=== PATIENT | female | born 1935 | race Caucasian/White ===

== ENCOUNTER 2017-02-13 13:00 | Emergency (ER) | payer MEDICARE, OTHER ==
--- NOTE | 2017-02-13 13:09 | EDM.PDOC ---
[id number] 4d FEVER Time Seen by Provider: 02/13/17 13:09 Source of Information: Reports: Patient, Family, Old Records, RN, RN Notes Reviewed History Limitations: Reports: No Limitations - History of Present Illness INITIAL COMMENTS - FREE TEXT/NARRATIVE: Pt with Hx of colorectal cancer s/p colostomy arrives to ER by POV with c/o of onset of weakness and fevers last night. Pt's states pt was just discharged home from a short senior living stay after being d/c'd from [facility]. They have not changed the surgical dressing for several days. Pt states that she hasn't has any stool out of her ostomy for 3 or 4 days. Pt's state pt has not been eating or drinking much since she got home. Denies abdominal distention, vomiting, urinary Sx's, or cough. 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 - Related Data Allergies Allergy/AdvReac Type Severity Reaction Status Date / Time Penicillins Allergy Edema Verified 10/15/16 17:29 Home Meds: Home Meds Tolterodine Tartrate [Detrol LA] 4 mg PO DAILY 10/15/16 [History] Pantoprazole [ProTONIX IV] 40 mg IV ASDIRECTED vial 10/16/16 [Rx] Potassium Chloride [Klor-Con 10] 20 meq PO BIDMEALS tab.er 10/16/16 [Rx] cefTRIAXone [Rocephin] 1 gm IV Q24H adv 10/16/16 [Rx] diphenhydrAMINE [Benadryl] 25 mg PO BEDTIME PRN #0 tablet 10/16/16 [Rx] Past Medical History HEENT History: Reports: Impaired Vision Cardiovascular History: Reports: Hypertension Gastrointestinal History: Reports: GERD Genitourinary History: Reports: UTI, Recurrent 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: - Infectious Disease History Infectious Disease History: Reports: Chicken Pox, Shingles - Past Surgical History Musculoskeletal Surgical History: Reports: Knee Replacement Social & Family History - Family History Cardiac: Reports: CAD (both parents), Hypertension (both parents) Neurological: Reports: CVA (mother) - Tobacco Use Smoking Status *Q: Never Smoker Second Hand Smoke Exposure: No - Caffeine Use Caffeine Use: Reports: Coffee, Soda - Recreational Drug Use Recreational Drug Use: No - Living Situation & Occupation Living situation: Reports: , with Spouse Occupation: Retired ED ROS GENERAL - Review of Systems Review Of Systems: ROS reveals no pertinent complaints other than HPI. ED EXAM, GENERAL - Physical Exam Exam: See Below Exam Limited By: No Limitations General Appearance: Alert, No Apparent Distress, Obese, Other (chronically ill appearing) Eye Exam: Bilateral Eye: Normal Inspection Ears: Normal External Exam, Hearing Grossly Normal Nose: Normal Inspection, Normal Mucosa, No Blood Throat/Mouth: Normal Oropharynx, Normal Voice, Other (dry oral membranes) Head: Atraumatic, Normocephalic Neck: Normal Inspection, Supple, Non-Tender, Full Range of Motion. No: Lymphadenopathy (L), Lymphadenopathy (R) Respiratory/Chest: No Respiratory Distress, No Accessory Muscle Use, Chest Non- Tender, Decreased Breath Sounds, Other (occ. mild dry cough) Cardiovascular: Normal Peripheral Pulses, Regular Rate, Rhythm GI/Abdominal: Normal Bowel Sounds, Soft, No Distention, Pelvis Stable, Tender ( mild generalized tenderness to palpation.), Other (empty ostomy bag). No: Guarding, Rigid, Rebound Back Exam: Normal Inspection, Full Range of Motion. No: CVA Tenderness (L), CVA Tenderness (R) Extremities: Normal Inspection, Normal Range of Motion, Non-Tender, Normal Capillary Refill, No Pedal Edema Neurological: Alert, Oriented, No Motor/Sensory Deficits Psychiatric: Normal Affect, Normal Mood Skin Exam: Warm, Dry, Wound/Incision (poor hygiene, mild erythema at abdominal wound) Course - Vital Signs Last Recorded V/S: Last Vital Signs Temp 36.8 C 02/13/17 15:00 Pulse 67 02/13/17 15:00 Resp 16 02/13/17 15:00 BP 108/49 L 02/13/17 15:00 Pulse Ox 96 02/13/17 15:00 - Orders/Labs/Meds Orders: Active Orders 24 hr Category Date Time Status Peripheral IV Care [RC] . DIRECTED Care 02/13/17 13:24 Active CULTURE BLOOD [BC] Stat Lab 02/13/17 13:36 Received CULTURE BLOOD [BC] Stat Lab 02/13/17 13:40 Received Blood Culture x2 Reflex Set [OM.PC] Stat Oth 02/13/17 13:23 Ordered Peripheral IV Insertion Adult [OM.PC] Stat [facility] 02/13/17 13:23 Ordered Labs: Laboratory Tests 02/13/17 02/13/17 02/13/17 Range/Units 13:35 13:36 13:36 WBC 9.8 (5.0-10.0) 10^3/uL RBC 3.24 L (4.2-5.4) 10^6/uL Hgb 9.0 L (12.0-16.0) g/dL Hct 28.2 L (37.0-47.0) % MCV 87.0 (80-100) fL MCH 27.8 (27.0-34.0) pg MCHC 31.9 L (33.0-35.0) g/dL Plt Count 504 H (150-450) 10^3/uL Neut % (Auto) 67.6 (42.2-75.2) % Lymph % (Auto) 22.6 (20.5-50.1) % [place] % (Auto) 6.9 (2-8) % Eos % (Auto) 2.5 (1.0-3.0) % Baso % (Auto) 0.4 (0.0-1.0) % Sodium 136 (135-145) mmol/L Potassium 3.2 L (3.6-5.0) mmol/L Chloride 101 (101-111) mmol/L Carbon Dioxide 25.0 (21.0-31.0) mmol/L Anion Gap 13.2 BUN 19 H (7-18) mg/dL Creatinine 1.0 (0.6-1.3) mg/dL Est Cr Clr Drug Dosing 38.10 mL/min Estimated GFR (MDRD) 53 BUN/Creatinine Ratio 19.00 Glucose 224 H (74-105) mg/dL Lactic Acid (0.5-2.2) mmol/L Calcium 8.2 L (8.4-10.2) mg/dl Total Bilirubin 0.5 (0.2-1.0) mg/dL AST 13 (10-42) IU/L ALT 8 L (10-60) IU/L Alkaline Phosphatase 91 (42-121) IU/L Total Protein 6.6 L (6.7-8.2) g/dl Albumin 2.6 L (3.2-5.5) g/dl Globulin 4.0 Albumin/Globulin Ratio 0.65 Amylase 39 (28-100) U/L Lipase 16 L (22-51) U/L Urine Color Yellow (YELLOW) Urine Appearance Slightly cloudy (CLEAR) Urine pH 5.0 (5.0-9.0) Ur Specific [place] 1.020 (1.005-1.030) Urine Protein 30 H (NEGATIVE) Urine Glucose (UA) Negative (NEGATIVE) Urine Ketones Negative (NEGATIVE) Urine Occult Blood Negative (NEGATIVE) Urine Nitrite Negative (NEGATIVE) Urine Bilirubin Negative (NEGATIVE) Urine Urobilinogen 0.2 (0.2-1.0) mg/dL Ur Leukocyte Esterase Trace H (NEGATIVE) Urine RBC 0-5 /HPF Urine WBC 5-10 H (0-5/HPF) /HPF Ur Epithelial Cells Few /HPF Amorphous Sediment Few (0/HPF) /HPF Urine Bacteria Few (0-FEW/HPF) /HPF /10/31 Range/Units 13:36 WBC (5.0-10.0) 10^3/uL RBC (4.2-5.4) 10^6/uL Hgb (12.0-16.0) g/dL Hct (37.0-47.0) % MCV (80-100) fL MCH (27.0-34.0) pg MCHC (33.0-35.0) g/dL Plt Count (150-450) 10^3/uL Neut % (Auto) (42.2-75.2) % Lymph % (Auto) (20.5-50.1) % [place] % (Auto) (2-8) % Eos % (Auto) (1.0-3.0) % Baso % (Auto) (0.0-1.0) % Sodium (135-145) mmol/L Potassium (3.6-5.0) mmol/L Chloride (101-111) mmol/L Carbon Dioxide (21.0-31.0) mmol/L Anion Gap BUN (7-18) mg/dL Creatinine (0.6-1.3) mg/dL Est Cr Clr Drug Dosing mL/min Estimated GFR (MDRD) BUN/Creatinine Ratio Glucose (74-105) mg/dL Lactic Acid 1.6 (0.5-2.2) mmol/L Calcium (8.4-10.2) mg/dl Total Bilirubin (0.2-1.0) mg/dL AST (10-42) IU/L ALT (10-60) IU/L Alkaline Phosphatase (42-121) IU/L Total Protein (6.7-8.2) g/dl Albumin (3.2-5.5) g/dl Globulin Albumin/Globulin Ratio Amylase (28-100) U/L Lipase (22-51) U/L Urine Color (YELLOW) Urine Appearance (CLEAR) Urine pH (5.0-9.0) Ur Specific [place] (1.005-1.030) Urine Protein (NEGATIVE) Urine Glucose (UA) (NEGATIVE) Urine Ketones (NEGATIVE) Urine Occult Blood (NEGATIVE) Urine Nitrite (NEGATIVE) Urine Bilirubin (NEGATIVE) Urine Urobilinogen (0.2-1.0) mg/dL Ur Leukocyte Esterase (NEGATIVE) Urine RBC /HPF Urine WBC (0-5/HPF) /HPF Ur Epithelial Cells /HPF Amorphous Sediment (0/HPF) /HPF Urine Bacteria (0-FEW/HPF) /HPF Meds: Medications Discontinued Medications Generic Name Dose Route Start Last Admin Trade Name Freq PRN Reason Stop Dose Admin Sodium Chloride 1,000 mls @ 999 mls/hr 02/13/17 13:24 02/13/17 13:50 Normal Saline IV 02/13/17 14:24 999 mls/hr .BOLUS ONE Administration Sodium Chloride 10 ml 02/13/17 13:23 02/13/17 13:40 Saline Flush FLUSH 10 ml ASDIRECTED PRN Administration Keep Vein Open - Radiology Interpretation Free Text/Narrative:: CXR: no acute process per Rad. report. Departure - Departure Time of Disposition: 14:55 Disposition: DC/Tfer to [facility] 02 Condition: serious Clinical Impression: Fever of unknown origin, Encounter for surgical wound dressing change, History of colorectal cancer Hypotension Qualifiers: Hypotension type: unspecified hypotension type Qualified Code(s): I95.9 - Hypotension, unspecified - Discharge Information Referrals: Liliane Jean-Baptiste, [employer] [Primary Care Provider] - Forms: ED Department Discharge, Interfacility Transfer EMTALA - My Orders Last 24 Hours: My Active Orders 02/13/17 13:23 Blood Culture x2 Reflex Set [OM.PC] Stat Peripheral IV Insertion Adult [OM.PC] Stat 02/13/17 13:24 Peripheral IV Care [RC] . DIRECTED 02/13/17 13:36 CULTURE BLOOD [BC] Stat 02/13/17 13:40 CULTURE BLOOD [BC] Stat - Assessment/Plan Last 24 Hours: My Active Orders 02/13/17 13:23 Blood Culture x2 Reflex Set [OM.PC] Stat Peripheral IV Insertion Adult [OM.PC] Stat 02/13/17 13:24 Peripheral IV Care [RC] . DIRECTED 02/13/17 13:36 CULTURE BLOOD [BC] Stat 02/13/17 13:40 CULTURE BLOOD [BC] Stat
[2017-02-13] MEDS ORDERED: Sodium Chloride 0.9% 10 ML Syringe FLUSH PRN (13:23)
[2017-02-13] MEDS ORDERED: Sodium Chloride 0.9% 1,000 ML IV ONE (13:24)
[2017-02-13 15:23] VITALS: BP 108/49
== END 2017-02-13 15:38 ==
LOC: DL.ED 13:00
DX: R50.9 Fever, unspecified (principal); I95.9 Hypotension, unspecified; K21.9 Gastro-esophageal reflux disease without esophagitis; Z85.048 Personal history of other malignant neoplasm of rectum, rectosigmoid junction, and anus; Z88.0 Allergy status to penicillin; Z79.899 Other long term (current) drug therapy; Z87.440 Personal history of urinary (tract) infections
CPT/HCPCS: 36415; 71010; 80053; 81001; 82150; 83605; 83690; 85025; 87040; 96365; 99284; J7030; J7050; 87077; 87186

== ENCOUNTER 2017-02-18 09:45 | Observation (INO) | payer MEDICARE, OTHER ==
--- NOTE | 2017-02-18 09:47 | EDM.PDOC ---
[id number] 4d IN BY AMBULANCE Time Seen by Provider: 02/18/17 09:46 Source of Information: Reports: Patient, EMS, Family, Old Records, RN, RN Notes Reviewed History Limitations: Reports: No Limitations - History of Present Illness INITIAL COMMENTS - FREE TEXT/NARRATIVE: Arrives by ambulance with reports that pt was discharged home from [facility] yesterday. Pt states that she is too weak to get out of bed. She states that when she got home from the hospital she fell getting out of the car before she even got into the house. She fell again yesterday in the house and could not get up, and her could not get her up so they called the ambulance and the EMT's put her back in bed. She didn't come to the hospital yesterday because she was not hurt and the EMT's checked her out. Today she woke and was too weak to get up, or even sit up to take her medications. She has been urinating on herself in the bed because she cannot get up. Denies pain , injury, fever, chills, or focal/lateralizing weakness. Paramedics report that pt was profoundly weak and unable to assist in transferring herself. Paramedics also state the the pt's home was very unkept, cluttered and high falls risk, and very unclean. Onset: Unknown/Unsure Duration: Chronic, Constant, Getting Worse Location: Reports: Generalized Severity: Severe Improves with: Reports: None Worsens with: Reports: None Context: Reports: Other (chronic illness, recent pelvic abscess currently under treatment) Associated Symptoms: Reports: No Other Symptoms - Related Data Allergies Allergy/AdvReac Type Severity Reaction Status Date / Time Penicillins Allergy Edema Verified 02/18/17 12:42 Home Meds: Home Meds Tolterodine Tartrate [Detrol LA] 4 mg PO DAILY 10/15/16 [History] diphenhydrAMINE [Benadryl] 25 mg PO BEDTIME PRN #0 tablet 10/16/16 [Rx] Aspirin 81 mg PO BRK 02/18/17 [History] Benazepril [Lotensin] 40 mg PO DAILY 02/18/17 [History] Ciprofloxacin HCl 500 mg PO BID 02/18/17 [History] Furosemide [Lasix] 40 mg PO BID 02/18/17 [History] Loratadine [Claritin] 10 mg PO DAILY 02/18/17 [History] Metoprolol Succinate [Toprol XL] 200 mg PO DAILY 02/18/17 [History] Multivit-Min/FA/Lycopene/Lut [Centrum Silver Tablet] 1 tab PO DAILY 02/18/17 [ History] Potassium Chloride [Klor-Con 10] 20 meq PO DAILY 02/18/17 [History] Sertraline [Zoloft] 50 mg PO DAILY 02/18/17 [History] amLODIPine [Norvasc] 10 mg PO DAILY 02/18/17 [History] metroNIDAZOLE [Flagyl] 500 mg PO TID 02/18/17 [History] Iron Ag,Ps/C/Fa6/B12/Zn/SA/Sto [Niferex Tablet] 1 each PO DAILY 02/20/17 [ History] Ranitidine [Zantac] 150 mg PO DAILY 02/20/17 [History] Past Medical History HEENT History: Reports: Impaired Vision Cardiovascular History: Reports: Hypertension Gastrointestinal History: Reports: Bowel Obstruction, GERD, Other (See Below) ( pelvic abscess) Genitourinary History: Reports: UTI, Recurrent 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: Oncologic (Cancer) History: Reports: Colon - Infectious Disease History Infectious Disease History: Reports: Chicken Pox, Shingles - Past Surgical History Musculoskeletal Surgical History: Reports: Knee Replacement Social & Family History - Family History Family Medical History: Noncontributory Cardiac: Reports: CAD (both parents), Hypertension (both parents) Neurological: Reports: CVA (mother) - Tobacco Use Smoking Status *Q: Never Smoker Second Hand Smoke Exposure: No - Caffeine Use Caffeine Use: Reports: Coffee, Soda - Recreational Drug Use Recreational Drug Use: No - Living Situation & Occupation Living situation: Reports: , with Spouse Occupation: Retired ED ROS GENERAL - Review of Systems Review Of Systems: ROS reveals no pertinent complaints other than HPI. ED EXAM, GENERAL - Physical Exam Exam: See Below Exam Limited By: No Limitations General Appearance: Alert, No Apparent Distress, Other (frail, elderly, chronically ill appearing, unkept, poor hygiene, urine soaked clothes, malodorous) Eye Exam: Bilateral Eye: Normal Inspection Ears: Normal External Exam, Hearing Grossly Normal Nose: Normal Inspection, Normal Mucosa, No Blood Throat/Mouth: Normal Inspection, Normal Lips, Normal Oropharynx, Normal Voice, No Airway Compromise, Other (pink and moist oral membranes) Head: Atraumatic, Normocephalic Neck: Normal Inspection, Supple, Non-Tender, Full Range of Motion Respiratory/Chest: No Respiratory Distress, Lungs Clear, No Accessory Muscle Use , Decreased Breath Sounds Cardiovascular: Normal Peripheral Pulses, Regular Rate, Rhythm, No Edema, No Gallop, No JVD, No Murmur, No Rub GI/Abdominal: Normal Bowel Sounds, Soft, Non-Tender, No Distention, Pelvis Stable. No: Guarding, Rigid, Rebound Back Exam: Normal Inspection. No: CVA Tenderness (L), CVA Tenderness (R) Extremities: Normal Inspection, Normal Range of Motion, Non-Tender, No Pedal Edema Neurological: Alert, CN II-XII Intact, Normal Cognition, Other (Oriented to person, place, month. Generalized weakness, no focal deficits.) Psychiatric: Normal Affect, Normal Mood Skin Exam: Warm, Dry EKG INTERPRETATION EKG Date: 02/18/17 Time: 10:21 Rhythm: other (sinus or ectopic atrial thythm.) Rate (beats/min): 70 [place]: LAD-left axis deviation P-wave: present QRS: other (PAC) ST-T: normal QT: normal [place]/PQ Interval: prolonged Course - Vital Signs Last Recorded V/S: Last Vital Signs Temp 37.2 C 02/20/17 07:00 Pulse 60 02/20/17 09:03 Resp 16 02/20/17 07:00 BP 139/64 02/20/17 09:06 Pulse Ox 98 02/20/17 03:00 - Orders/Labs/Meds Labs: Laboratory Tests 02/18/17 02/18/17 02/18/17 Range/Units 10:28 10:28 10:28 WBC 7.1 (5.0-10.0) 10^3/uL RBC 3.08 L (4.2-5.4) 10^6/uL Hgb 8.6 L (12.0-16.0) g/dL Hct 26.9 L (37.0-47.0) % MCV 87.3 (80-100) fL MCH 27.9 (27.0-34.0) pg MCHC 32.0 L (33.0-35.0) g/dL Plt Count 494 H (150-450) 10^3/uL Neut % (Auto) 64.2 (42.2-75.2) % Lymph % (Auto) 24.3 (20.5-50.1) % [place] % (Auto) 8.3 H (2-8) % Eos % (Auto) 2.9 (1.0-3.0) % Baso % (Auto) 0.3 (0.0-1.0) % Sodium 133 L (135-145) mmol/L Potassium 3.7 (3.6-5.0) mmol/L Chloride 104 (101-111) mmol/L Carbon Dioxide 22.0 (21.0-31.0) mmol/L Anion Gap 10.7 BUN 9 (7-18) mg/dL Creatinine 0.7 (0.6-1.3) mg/dL Est Cr Clr Drug Dosing 49.85 mL/min Estimated GFR (MDRD) > 60 BUN/Creatinine Ratio 12.85 Glucose 133 H (74-105) mg/dL Calcium 8.0 L (8.4-10.2) mg/dl Total Bilirubin 0.4 (0.2-1.0) mg/dL AST 11 (10-42) IU/L ALT 9 L (10-60) IU/L Alkaline Phosphatase 90 (42-121) IU/L Creatine Kinase 27 (26-174) IU/L B-Natriuretic Peptide 547 H (0-100) pg/ml Total Protein 6.3 L (6.7-8.2) g/dl Albumin 2.4 L (3.2-5.5) g/dl Globulin 3.9 Albumin/Globulin Ratio 0.62 Urine Color (YELLOW) Urine Appearance (CLEAR) Urine pH (5.0-9.0) Ur Specific [place] (1.005-1.030) Urine Protein (NEGATIVE) Urine Glucose (UA) (NEGATIVE) Urine Ketones (NEGATIVE) Urine Occult Blood (NEGATIVE) Urine Nitrite (NEGATIVE) Urine Bilirubin (NEGATIVE) Urine Urobilinogen (0.2-1.0) mg/dL Ur Leukocyte Esterase (NEGATIVE) Urine RBC /HPF Urine WBC (0-5/HPF) /HPF Ur Epithelial Cells /HPF Urine Bacteria (0-FEW/HPF) /HPF 02/18/17 Range/Units 11:02 WBC (5.0-10.0) 10^3/uL RBC (4.2-5.4) 10^6/uL Hgb (12.0-16.0) g/dL Hct (37.0-47.0) % MCV (80-100) fL MCH (27.0-34.0) pg MCHC (33.0-35.0) g/dL Plt Count (150-450) 10^3/uL Neut % (Auto) (42.2-75.2) % Lymph % (Auto) (20.5-50.1) % [place] % (Auto) (2-8) % Eos % (Auto) (1.0-3.0) % Baso % (Auto) (0.0-1.0) % Sodium (135-145) mmol/L Potassium (3.6-5.0) mmol/L Chloride (101-111) mmol/L Carbon Dioxide (21.0-31.0) mmol/L Anion Gap BUN (7-18) mg/dL Creatinine (0.6-1.3) mg/dL Est Cr Clr Drug Dosing mL/min Estimated GFR (MDRD) BUN/Creatinine Ratio Glucose (74-105) mg/dL Calcium (8.4-10.2) mg/dl Total Bilirubin (0.2-1.0) mg/dL AST (10-42) IU/L ALT (10-60) IU/L Alkaline Phosphatase (42-121) IU/L Creatine Kinase (26-174) IU/L B-Natriuretic Peptide (0-100) pg/ml Total Protein (6.7-8.2) g/dl Albumin (3.2-5.5) g/dl Globulin Albumin/Globulin Ratio Urine Color Yellow (YELLOW) Urine Appearance Cloudy (CLEAR) Urine pH 5.5 (5.0-9.0) Ur Specific [place] 1.015 (1.005-1.030) Urine Protein Trace H (NEGATIVE) Urine Glucose (UA) Negative (NEGATIVE) Urine Ketones Negative (NEGATIVE) Urine Occult Blood Trace-lysed H (NEGATIVE) Urine Nitrite Negative (NEGATIVE) Urine Bilirubin Negative (NEGATIVE) Urine Urobilinogen 0.2 (0.2-1.0) mg/dL Ur Leukocyte Esterase Small H (NEGATIVE) Urine RBC 0-5 /HPF Urine WBC 10-20 H (0-5/HPF) /HPF Ur Epithelial Cells Moderate H /HPF Urine Bacteria Moderate H (0-FEW/HPF) /HPF Meds: Medications Discontinued Medications Generic Name Dose Route Start Last Admin Trade Name Sina PRN Reason Stop Dose Admin Acetaminophen 650 mg 02/19/17 16:08 02/19/17 19:04 Tylenol PO 650 mg Q4H PRN Administration Pain/Fever Acetaminophen 650 mg 02/19/17 16:09 02/19/17 16:37 Tylenol PO 02/19/17 16:10 650 mg NOW ONE Administration Amlodipine Besylate 10 mg 02/19/17 09:00 02/20/17 09:06 Norvasc PO 10 mg DAILY OSCAR Administration Aspirin 81 mg 02/18/17 14:00 02/20/17 08:57 Aspirin PO 81 mg BRK OSCAR Administration Benazepril HCl 40 mg 02/19/17 09:00 02/20/17 09:03 Lotensin PO 40 mg DAILY OSCAR Administration Carbamide Perox/Anhydrous Glycerin 0 ml 02/19/17 21:00 02/20/17 09:06 Debrox 6.5% Otic Soln EARBOTH 02/22/17 21:01 1 applic BID OSCAR Administration Ciprofloxacin 500 mg 02/18/17 21:00 02/20/17 09:00 Ciprofloxacin Hcl PO 500 mg BID OSCAR Administration Diphenhydramine HCl 25 mg 02/18/17 13:46 Benadryl PO BEDTIME PRN Sleep Enoxaparin Sodium 40 mg 02/19/17 09:00 02/19/17 09:33 Lovenox SUBCUT 40 mg DAILY OSCAR Administration Ferrous Sulfate 325 mg 02/19/17 08:00 02/20/17 08:58 Ferrous Sulfate PO 325 mg DAILY@0800 OSCAR Administration Furosemide 40 mg 02/18/17 14:45 02/20/17 09:00 Lasix PO 40 mg BIDDIURETIC OSCAR Administration Furosemide 20 mg 02/18/17 16:30 02/18/17 16:58 Lasix IVPUSH 02/18/17 16:31 20 mg ONETIME ONE Administration Furosemide 20 mg 02/19/17 21:00 02/20/17 00:23 Lasix IVPUSH 02/19/17 21:01 Not Given NOW ONE Furosemide 20 mg 02/19/17 23:30 02/19/17 23:25 Lasix IVPUSH 02/19/17 23:31 20 mg ONETIME ONE Administration Hydrochlorothiazide 12.5 mg 02/19/17 09:00 02/20/17 09:01 Hydrochlorothiazide PO 12.5 mg DAILY OSCAR Administration Ibuprofen 400 mg 02/19/17 18:53 02/19/17 19:04 Motrin PO 02/19/17 18:54 400 mg ONETIME ONE Administration Loratadine 10 mg 02/19/17 09:00 02/20/17 09:00 Claritin PO 10 mg DAILY OSCAR Administration Memantine 10 mg 02/18/17 21:00 02/19/17 09:26 Namenda PO 10 mg BID OSCAR Administration Metoprolol Succinate 200 mg 02/19/17 09:00 02/20/17 09:03 Toprol Xl PO 200 mg DAILY OSCAR Administration Metronidazole 500 mg 02/18/17 14:00 02/20/17 09:05 Metronidazole PO 500 mg TID OSCAR Administration Multivitamins/Minerals 1 tab 02/19/17 09:00 02/20/17 09:04 Vitamins And Minerals PO 1 tab DAILY OSCAR Administration Non-Formulary Medication 1 each 02/19/17 09:00 02/19/17 14:54 Humphrey-3s/Dha/Epa/Fish Oil [Fish Oil Humphrey-3 Softgel] PO Not Given DAILY OSCAR Omeprazole 20 mg 02/19/17 06:00 02/20/17 05:56 Omeprazole PO 20 mg ACBRK OSCAR Administration Oxycodone/Acetaminophen 1 tab 02/18/17 13:46 Percocet 325-5 Mg PO Q6H PRN Pain (moderate 4-6) Potassium Chloride 20 meq 02/19/17 08:00 02/20/17 08:59 Klor-Con 10 PO 20 meq DAILY@0800 OSCAR Administration Potassium Chloride 40 meq 02/19/17 10:54 02/19/17 12:17 Klor-Con 10 PO 02/19/17 10:55 40 meq ONETIME ONE Administration Sertraline HCl 50 mg 02/19/17 09:00 02/20/17 09:05 Zoloft PO 50 mg DAILY OSCAR Administration Sodium Chloride 10 ml 02/18/17 10:08 02/18/17 16:59 Saline Flush FLUSH 10 ml ASDIRECTED PRN Administration Keep Vein Open Tolterodine Tartrate 4 mg 02/19/17 09:00 02/20/17 09:01 Detrol La 24 Hr PO 4 mg DAILY OSCAR Administration Departure - Departure Time of Disposition: 11:55 ((Admit to Dr. Tidwell)) Disposition: Admitted As Inpatient 66 Condition: serious Clinical Impression: Generalized weakness, Frequent falls, Colorectal cancer Anemia Qualifiers: Anemia type: unspecified type Qualified Code(s): D64.9 - Anemia, unspecified CHF (congestive heart failure) Qualifiers: Congestive heart failure type: unspecified congestive heart failure type Congestive heart failure chronicity: unspecified congestive heart failure chronicity Qualified Code(s): I50.9 - Heart failure, unspecified - Discharge Information
[2017-02-18] MEDS: Sodium Chloride 0.9% 10 ML Syringe FLUSH PRN ×3 (10:32→16:59)
[2017-02-18 10:54] LABS: CHLORIDE,CL 104 mmol/L (101-111); SODIUM,NA 133 mmol/L (135-145)
--- NOTE | 2017-02-18 11:00 | CR ---
Clinical history: 81-year-old female with chest pain. Interpretation: Normal cardiac silhouette unchanged since to February 2017 exam but... generalized slight increase venous congestion. BNP? Peripheral edema? EKG? No lung mass, hilar lymphadenopathy, focal lobar pneumonia or dependent pleural fluid accumulation. Calcifications arch of the ectatic aorta. 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 CONCLUSION: Suggestion mild cardiovascular decompensation. Clinical?
[2017-02-18] MEDS ORDERED: diphenhydrAMINE 25 MG Tab PO PRN (13:46)
[2017-02-18] MEDS ORDERED: Acetaminophen/oxyCODONE 325-5 MG Tab PO PRN (13:46)
--- NOTE | 2017-02-18 15:26 | PCM.HP ---
[id number] Diagnosis/Problem Admission Diagnosis/Problem Weakness Source of Information: Patient, Old Records - History of Present Illness Initial Comments - Free Text/Narative: patient is an 81-year-old female was admitted because of generalized weakness. 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 She was discharged after 4 days of being hospital with p.o. antibiotics, ciprofloxacin and Flagyl. On the day of discharge, drove her home. Apparently, she fell when she was getting off the car because of weakness. No injury. However today, the is not able to get her up from bed, called ambulance and was partially emergency room because of prolonged weakness. Patient clearly denies any chest pain, shortness of breath, cough, or any joint pain. She denies any headache, dizziness, bloody stools. She reports that she has been eating fine. - Related Data Allergies/Adverse Reactions: Allergies Allergy/AdvReac Type Severity Reaction Status Date / Time Penicillins Allergy Edema Verified 02/18/17 12:42 Home Medications: Home Meds Tolterodine Tartrate [Detrol LA] 4 mg PO DAILY 10/15/16 [History] diphenhydrAMINE [Benadryl] 25 mg PO BEDTIME PRN #0 tablet 10/16/16 [Rx] Aspirin 81 mg PO BRK 02/18/17 [History] Benazepril [Lotensin] 40 mg PO DAILY 02/18/17 [History] Ciprofloxacin HCl 500 mg PO BID 02/18/17 [History] Furosemide [Lasix] 40 mg PO BID 02/18/17 [History] Loratadine [Claritin] 10 mg PO DAILY 02/18/17 [History] Metoprolol Succinate [Toprol XL] 200 mg PO DAILY 02/18/17 [History] Multivit-Min/FA/Lycopene/Lut [Centrum Silver Tablet] 1 tab PO DAILY 02/18/17 [ History] Potassium Chloride [Klor-Con 10] 20 meq PO DAILY 02/18/17 [History] Sertraline [Zoloft] 50 mg PO DAILY 02/18/17 [History] amLODIPine [Norvasc] 10 mg PO DAILY 02/18/17 [History] metroNIDAZOLE [Flagyl] 500 mg PO TID 02/18/17 [History] Iron Ag,Ps/C/Fa6/B12/Zn/SA/Sto [Niferex Tablet] 1 each PO DAILY 02/20/17 [ History] Ranitidine [Zantac] 150 mg PO DAILY 02/20/17 [History] Past Medical History HEENT History: Reports: Impaired Vision Cardiovascular History: Reports: Hypertension Gastrointestinal History: Reports: Bowel Obstruction, GERD, Other (See Below) Genitourinary History: Reports: None TRIBAL JUDGE History: Reports: Oncologic (Cancer) History: Reports: Colon - Infectious Disease History Infectious Disease History: Reports: Chicken Pox, Shingles - Past Surgical History GI Surgical History: Reports: Colostomy Female Surgical History: Reports: Hysterectomy Musculoskeletal Surgical History: Reports: Knee Replacement, Other (See Below) Other Musculoskeletal Surgeries/Procedures:: herniated disk with graft bone Social & Family History - Family History Family Medical History: Noncontributory Cardiac: Reports: CAD, Hypertension Neurological: Reports: CVA - Tobacco Use Smoking Status *Q: Never Smoker Second Hand Smoke Exposure: No - Caffeine Use Caffeine Use: Reports: Soda - Recreational Drug Use Recreational Drug Use: No - Living Situation & Occupation Living situation: Reports: , with Spouse Occupation: Retired H&P Review of Systems - Review of Systems: Review Of Systems: See Below General: Reports: Weakness Pulmonary: Reports: No Symptoms Cardiovascular: Reports: No Symptoms Neurological: Reports: Weakness Hematologic/Lymphatic: Reports: Anemia Exam - Exam Exam: See Below - Vital Signs Vital Signs: Last Vital Signs Temp 37.1 C 02/18/17 12:41 Pulse 64 02/18/17 12:41 Resp 18 02/18/17 12:41 BP 169/74 H 02/18/17 12:41 Pulse Ox 99 02/18/17 12:41 Weight: 76.34 kg - Exam General: Alert, Oriented Lungs: Clear to Auscultation, Normal Respiratory Effort Cardiovascular: Regular Rate, Regular Rhythm Abdomen: Normal Bowel Sounds, Soft Extremities: Other (no edema) - Patient Data Result Diagrams: 02/20/17 05:25 02/20/17 05:25 *Q Meaningful Use (ADM) - VTE *Q VTE Criteria *Q: - Stroke *Q Stroke Criteria *Q: - AMI *Q AMI Criteria *Q: - Problem List (1) Weakness SNOMED Code(s): 52111922 ICD Code: R53.1 - WEAKNESS Status: Acute Priority: High Onset Date: ~ (2) Anemia SNOMED Code(s): 043800434 ICD Code: D64.9 - ANEMIA, UNSPECIFIED Status: Acute Priority: Medium Onset Date: ~02/19/17 Qualifiers: Anemia type: unspecified type Qualified Code(s): D64.9 - Anemia, unspecified Problem List Initiated/Reviewed/Updated: Yes Orders Last 24hrs: Active Orders 24 hr Category Date Time Status Regular Diet [DIET] Diet 02/18/17 Dinner Active Medication Orders Amlodipine Besylate (Norvasc) 10 mg PO DAILY [facility] Aspirin (Aspirin) 81 mg PO BRK [facility] Benazepril HCl (Lotensin) 40 mg PO DAILY [facility] Ciprofloxacin (Ciprofloxacin Hcl) 500 mg PO BID [facility] Diphenhydramine HCl (Benadryl) 25 mg PO BEDTIME PRN PRN Reason: Sleep Ferrous Sulfate (Ferrous Sulfate) 325 mg PO DAILY@0800 [facility] Furosemide (Lasix) 40 mg PO BIDDIURETIC [facility] Hydrochlorothiazide (Hydrochlorothiazide) 12.5 mg PO DAILY [facility] Loratadine (Claritin) 10 mg PO DAILY [facility] Memantine (Namenda) 10 mg PO BID [facility] Metoprolol Succinate (Toprol Xl) 200 mg PO DAILY [facility] Metronidazole (Metronidazole) 500 mg PO TID [facility] Multivitamins/Minerals (Vitamins And Minerals) 1 tab PO DAILY [facility] Non-Formulary Medication ([place]-3s/Dha/Epa/Fish Oil [Fish Oil [place]-3 Softgel]) 1 each PO DAILY [facility] Omeprazole (Omeprazole) 20 mg PO ACBRK [facility] Oxycodone/Acetaminophen (Percocet 325-5 Mg) 1 tab PO Q6H PRN PRN Reason: Pain (moderate 4-6) Potassium Chloride (Klor-Con 10) 20 meq PO DAILY@0800 [facility] Sertraline HCl (Zoloft) 50 mg PO DAILY [facility] Sodium Chloride (Saline Flush) 10 ml FLUSH ASDIRECTED PRN PRN Reason: Keep Vein Open Last Admin: 02/18/17 10:32 Dose: 10 ml Tolterodine Tartrate (Detrol La 24 Hr) 4 mg PO DAILY [facility] Assessment/Plan Comment:: Generalized weakness, multifactorial - Patient recently diagnosed with rectosigmoid cancer, following an oncologist, underwent surgery, was noted to have infection ( proctitis), and is to complete p.o. antibiotics; she was in the hospital, she had low hemoglobin however her current hemoglobin is better compared to then - Continue ciprofloxacin and Flagy - repeat an monitor CBC - Physical therapy and occupational therapy consult elevated BNP - Review records, echocardiogram done last October showed ejection fraction of more than 60% however with diastolic dysfunction - Continue with p.o. Lasix, will give additional Lasix 20 mg IV one time - Strict I and O. and daily weights Anemia - Work up done previous admission showed anemia of chronic disease; continue iron supplement at the started - Monitor CBC periodically Proctitis - IR was consulted and previous admission and agreement was done to do conservative nonsurgical management - Continue ciprofloxacin and Flagyl Colorectal cancer status post colostomy - Outpatient followup - monitor for regularity of bowel movement; ostomy care hypertension - Continue blood pressure checks - On hydrochlorothiazide, metoprolol, benazepril, amlodipine GERD: Continue omeprazole DVT prophylaxis: Lovenox
[2017-02-18] MEDS: Aspirin 81 MG Tab.Chew PO SCH (15:52)
[2017-02-18] MEDS: Furosemide 40 MG Tab PO SCH (15:53)
[2017-02-18] MEDS: metroNIDAZOLE 250 MG Tab PO SCH ×2 (15:54→21:26)
[2017-02-18] MEDS ORDERED: Furosemide 20 MG/2 ML VIAL IVPUSH ONE (16:30)
[2017-02-18] MEDS: Ciprofloxacin 500 MG Tab PO SCH (21:25)
[2017-02-18] MEDS: Memantine 10 MG Tab PO SCH (21:25)
[2017-02-19] MEDS: Omeprazole 20 MG Cap.CR PO SCH (06:38)
[2017-02-19 07:06] LABS: CHLORIDE,CL 100 mmol/L (101-111); SODIUM,NA 132 mmol/L (135-145)
[2017-02-19] MEDS ORDERED: EPA PO SCH (09:00)
[2017-02-19] MEDS ORDERED: Enoxaparin 40 MG/0.4 ML Syringe SUBCUT SCH (09:00)
[2017-02-19] MEDS ORDERED: FISH OIL PO SCH (09:00)
[2017-02-19] MEDS ORDERED: OMEGA PO SCH (09:00)
[2017-02-19] MEDS ORDERED: [UNRECOGNIZED DRUG - OTHER] PO SCH (09:00)
[2017-02-19] MEDS ORDERED: DHA PO SCH (09:00)
[2017-02-19] MEDS: Aspirin 81 MG Tab.Chew PO SCH (09:14)
[2017-02-19] MEDS: Ferrous Sulfate 325 MG Tab PO SCH (09:15)
[2017-02-19] MEDS: Potassium Chloride 10 MEQ Tab.ER PO SCH (09:16)
[2017-02-19] MEDS: Loratadine 10 MG Tab PO SCH (09:20)
[2017-02-19] MEDS: Tolterodine 2 MG Cap.ER PO SCH (09:20)
[2017-02-19] MEDS: Hydrochlorothiazide 25 MG Tab PO SCH (09:22)
[2017-02-19] MEDS: Benazepril 10 MG Tab PO SCH (09:24)
[2017-02-19] MEDS: Memantine 10 MG Tab PO SCH (09:26)
[2017-02-19] MEDS: amLODIPine 5 MG Tab PO SCH (09:27)
[2017-02-19] MEDS: Ciprofloxacin 500 MG Tab PO SCH ×2 (09:28→20:58)
[2017-02-19] MEDS: metroNIDAZOLE 250 MG Tab PO SCH ×3 (09:29→20:57)
[2017-02-19] MEDS: Metoprolol Succinate 50 MG Tab.ER PO SCH (09:30)
[2017-02-19] MEDS: Multivitamins, Therapeutic with Minerals Tab PO SCH (09:31)
[2017-02-19] MEDS: Sertraline 50 MG Tab PO SCH (09:33)
[2017-02-19] MEDS: Furosemide 40 MG Tab PO SCH ×2 (09:34→13:27)
[2017-02-19] MEDS ORDERED: Ciprofloxacin 500 MG Tab PO ONE (09:50)
[2017-02-19] MEDS ORDERED: metroNIDAZOLE 250 MG Tab PO ONE (09:50)
[2017-02-19] MEDS ORDERED: Potassium Chloride 10 MEQ Tab.ER PO ONE (10:54)
--- NOTE | 2017-02-19 11:19 | PCM.PN ---
- General Info Date of Service: 02/19/17 Admission Dx/Problem (Free Text): Admission Diagnosis/Problem Admission Diagnosis/Problem Weakness Subjective Update: the patient offers no complaint. - Review of Systems General: Reports: Weakness Pulmonary: Denies: shortness of breath Cardiovascular: Denies: Chest Pain Gastrointestinal: Denies: Abdominal pain Genitourinary: Denies: dysuria - Patient Data Vitals - most recent: Last Vital Signs Temp 36.8 C 02/19/17 11:00 Pulse 63 02/19/17 11:00 Resp 16 02/19/17 11:00 BP 141/50 H 02/19/17 11:00 Pulse Ox 100 02/19/17 11:00 Weight - most recent: 74.616 kg I&O - last 24 hours: Intake & Output 02/18/17 02/19/17 02/19/17 22:59 06:59 14:59 Intake Total 300 50 120 Balance 300 50 120 Lab Results last 24 hrs: Laboratory Results - last 24 hr 02/19/17 02/19/17 Range/Units 06:12 06:12 WBC 8.1 (5.0-10.0) 10^3/uL RBC 2.87 L (4.2-5.4) 10^6/uL Hgb 7.9 L (12.0-16.0) g/dL Hct 24.7 L (37.0-47.0) % MCV 86.1 (80-100) fL MCH 27.5 (27.0-34.0) pg MCHC 32.0 L (33.0-35.0) g/dL Plt Count 525 H (150-450) 10^3/uL Neut % (Auto) 55.6 (42.2-75.2) % Lymph % (Auto) 29.7 (20.5-50.1) % [place] % (Auto) 11.7 H (2-8) % Eos % (Auto) 2.8 (1.0-3.0) % Baso % (Auto) 0.2 (0.0-1.0) % Sodium 132 L (135-145) mmol/L Potassium 3.5 L (3.6-5.0) mmol/L Chloride 100 L (101-111) mmol/L Carbon Dioxide 23.0 (21.0-31.0) mmol/L Anion Gap 12.5 BUN 10 (7-18) mg/dL Creatinine 0.7 (0.6-1.3) mg/dL Est Cr Clr Drug Dosing 49.85 mL/min Estimated GFR (MDRD) > 60 Glucose 122 H (74-105) mg/dL Calcium 7.7 L (8.4-10.2) mg/dl Med Orders - Current: Current Medications Amlodipine Besylate (Norvasc) 10 mg PO DAILY [facility] Last Admin: 02/19/17 09:27 Dose: 10 mg Aspirin (Aspirin) 81 mg PO BRK [facility] Last Admin: 02/19/17 09:14 Dose: 81 mg Benazepril HCl (Lotensin) 40 mg PO DAILY [facility] Last Admin: 02/19/17 09:24 Dose: 40 mg Ciprofloxacin (Ciprofloxacin Hcl) 500 mg PO BID [facility] Last Admin: 02/19/17 09:28 Dose: 500 mg Diphenhydramine HCl (Benadryl) 25 mg PO BEDTIME PRN PRN Reason: Sleep Enoxaparin Sodium (Lovenox) 40 mg SUBCUT DAILY [facility] Last Admin: 02/19/17 09:33 Dose: 40 mg Ferrous Sulfate (Ferrous Sulfate) 325 mg PO DAILY@0800 [facility] Last Admin: 02/19/17 09:15 Dose: 325 mg Furosemide (Lasix) 40 mg PO BIDDIURETIC [facility] Last Admin: 02/19/17 09:34 Dose: 40 mg Hydrochlorothiazide (Hydrochlorothiazide) 12.5 mg PO DAILY [facility] Last Admin: 02/19/17 09:22 Dose: 12.5 mg Loratadine (Claritin) 10 mg PO DAILY [facility] Last Admin: 02/19/17 09:20 Dose: 10 mg Memantine (Namenda) 10 mg PO BID [facility] Last Admin: 02/19/17 09:26 Dose: 10 mg Metoprolol Succinate (Toprol Xl) 200 mg PO DAILY [facility] Last Admin: 02/19/17 09:30 Dose: 200 mg Metronidazole (Metronidazole) 500 mg PO TID [facility] Last Admin: 02/19/17 09:29 Dose: 500 mg Multivitamins/Minerals (Vitamins And Minerals) 1 tab PO DAILY [facility] Last Admin: 02/19/17 09:31 Dose: 1 tab Non-Formulary Medication ([place]-3s/Dha/Epa/Fish Oil [Fish Oil [place]-3 Softgel]) 1 each PO DAILY [facility] Omeprazole (Omeprazole) 20 mg PO ACBRK [facility] Last Admin: 02/19/17 06:38 Dose: 20 mg Oxycodone/Acetaminophen (Percocet 325-5 Mg) 1 tab PO Q6H PRN PRN Reason: Pain (moderate 4-6) Potassium Chloride (Klor-Con 10) 20 meq PO DAILY@0800 [facility] Last Admin: 02/19/17 09:16 Dose: 20 meq Sertraline HCl (Zoloft) 50 mg PO DAILY [facility] Last Admin: 02/19/17 09:33 Dose: 50 mg Sodium Chloride (Saline Flush) 10 ml FLUSH ASDIRECTED PRN PRN Reason: Keep Vein Open Last Admin: 02/18/17 16:59 Dose: 10 ml Tolterodine Tartrate (Detrol La 24 Hr) 4 mg PO DAILY [facility] Last Admin: 02/19/17 09:20 Dose: 4 mg Discontinued Medications Furosemide (Lasix) 20 mg IVPUSH ONETIME ONE Stop: 02/18/17 16:31 Last Admin: 02/18/17 16:58 Dose: 20 mg Potassium Chloride (Klor-Con 10) 40 meq PO ONETIME ONE Stop: 02/19/17 10:55 - Exam General: alert, oriented Neck: supple Lungs: Decreased breath sounds Cardiovascular: Regular Rate Abdomen: bowel sounds present, other (Colostomy) Extremities: no edema Skin: warm, dry, other (surgical incision midline abdomen, small areas of the nonhealed wound packed.) - Problem List & Annotations (1) Anemia SNOMED Code(s): 883008538 Code(s): D64.9 - ANEMIA, UNSPECIFIED Status: Acute Current Visit: Yes (2) Weakness SNOMED Code(s): 07326389 Code(s): R53.1 - WEAKNESS Status: Acute Current Visit: Yes (3) History of colorectal cancer SNOMED Code(s): 767437435 Code(s): Z85.038 - PERSONAL HISTORY OF MALIGNANT NEOPLASM OF LARGE INTESTINE Status: Acute Current Visit: No - Problem List Review Problem List Initiated/Reviewed/Updated: Yes - My Orders Last 24 Hours: My Active Orders 02/20/17 05:15 BASIC METABOLIC PANEL,BMP [CHEM] AM CBC WITH AUTO DIFF [HEME] AM - Plan Plan:: Generalized weakness, multifactorial - Physical therapy and occupational therapy consult rectosigmoid cancer with proctitis - Patient recently diagnosed with rectosigmoid cancer, following an oncologist, underwent surgery, was noted to have infection ( proctitis), - Continue ciprofloxacin and Flagy - repeat and monitor CBC hypokalemia Will replace and follow electrolytes and renal function tests chronic diastolic congestive heart failure - Review records, echocardiogram done last October showed ejection fraction of more than 60% however with diastolic dysfunction - Continue with p.o. Lasix, - Strict I and O. 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
[2017-02-19] MEDS ORDERED: Acetaminophen 325 MG Tab PO PRN (16:08)
[2017-02-19] MEDS ORDERED: Acetaminophen 325 MG Tab PO ONE (16:09)
[2017-02-19] MEDS ORDERED: Ibuprofen 400 MG Tab PO ONE (18:53)
[2017-02-19] MEDS: Carbamide Peroxide 6.5% Otic Soln 15 ML Bottle EARBOTH SCH (20:58)
[2017-02-19] MEDS ORDERED: Furosemide 20 MG/2 ML VIAL IVPUSH ONE ×2 (21:00→23:30)
[2017-02-20] MEDS: Omeprazole 20 MG Cap.CR PO SCH (05:56)
[2017-02-20 06:55] LABS: CHLORIDE,CL 99 mmol/L (101-111); SODIUM,NA 134 mmol/L (135-145)
[2017-02-20 07:36] VITALS: BP 139/64
[2017-02-20] MEDS: Aspirin 81 MG Tab.Chew PO SCH (08:57)
[2017-02-20] MEDS: Ferrous Sulfate 325 MG Tab PO SCH (08:58)
[2017-02-20] MEDS: Potassium Chloride 10 MEQ Tab.ER PO SCH (08:59)
[2017-02-20] MEDS: Loratadine 10 MG Tab PO SCH (09:00)
[2017-02-20] MEDS: Furosemide 40 MG Tab PO SCH (09:00)
[2017-02-20] MEDS: Ciprofloxacin 500 MG Tab PO SCH (09:00)
[2017-02-20] MEDS: Hydrochlorothiazide 25 MG Tab PO SCH (09:01)
[2017-02-20] MEDS: Tolterodine 2 MG Cap.ER PO SCH (09:01)
[2017-02-20] MEDS: Benazepril 10 MG Tab PO SCH (09:03)
[2017-02-20] MEDS: Metoprolol Succinate 50 MG Tab.ER PO SCH (09:03)
[2017-02-20] MEDS: Multivitamins, Therapeutic with Minerals Tab PO SCH (09:04)
[2017-02-20] MEDS: metroNIDAZOLE 250 MG Tab PO SCH (09:05)
[2017-02-20] MEDS: Sertraline 50 MG Tab PO SCH (09:05)
[2017-02-20] MEDS: amLODIPine 5 MG Tab PO SCH (09:06)
[2017-02-20] MEDS: Carbamide Peroxide 6.5% Otic Soln 15 ML Bottle EARBOTH SCH (09:06)
--- NOTE | 2017-02-20 10:27 | EKG ---
02/20/2017 - REGGIE HOYOS - This 12-lead EKG shows a normal sinus rhythm with a ventricular rate of 69. There is a first-degree AV block. Left axis deviation. Borderline prolonged QT interval. No acute ST-segment or T-wave changes. The patient has a history of paroxysmal atrial fibrillation, but is in a normal sinus rhythm today. [facility] /[id number]
--- NOTE | 2017-02-21 02:53 | DISCH ---
DISCHARGE DIAGNOSES: 1. General debility and weakness. 2. Falls at home. 3. History of rectosigmoid adenocarcinoma, October 2016, with resection and placement of colostomy. 4. Anemia, recurrent. 5. Transfused 1 unit of packed red blood cells (A positive, antibody negative). 6. Hyponatremia, chronic. 7. Hypokalemia, repleted. 8. Mild cardiovascular decompensation seen on admission chest x-ray of 02/18/2017, with elevated BNP of 547. 9. Hypoalbuminemia. 10.Urinary tract infection, urine culture positive for Gram-positive cocci, probable coagulase-negative staph. Final ID and sensitivity pending.See addendum. 11.Hypertension, controlled. 12.History of paroxysmal atrial fibrillation, currently in sinus rhythm. 13.Grade 1 diastolic dysfunction, echocardiogram 10/28/2016. BRIEF HISTORY OF PRESENT ILLNESS: Linn Waite is an 81-year-old female, who presented to the emergency room with generalized weakness and falls at home. She had been hospitalized in [place] from February 13 to February 17. She had been seen in the emergency room here on February 13 and was transferred to [place]. She had presented with episodes of vomiting and a temperature to 101. Workup in [place] did not reveal significant infection and she was discharged on February 17 back to home with planned followup next week for her colon cancer and for ongoing recheck of her abdominal wound, which remains with 2 slightly dehisced areas. Her antihypertensives were adjusted during the [place] admission because of elevated blood pressures. There is no evidence for recurrent GI bleeding and she is on an iron supplement. She returned home with referral to Home Health. Home Health was unable to follow up as she does not have a primary care physician, and she would not choose one. Her previous primary care provider had withdrawn from her care because of noncompliance. Her states that when they arrived home, she fell getting out of the vehicle and he had to call 911, because he could not get her up by himself. He called the ambulance on the day of re-admission because of generalized weakness and the fact that she could not get out of bed. During the admission in [place], she had, had a repeat CT scan of the abdomen and pelvis with contrast. Two fluid collections were seen in the pelvis , in the region of the presumed rectal stump. It is unclear if they connected or not. One of the fluid collections is new, one of them also appears to connect to the vaginal cuff. There were concerns for proctitis with abscess and a fistulous connection to the vaginal cuff. There is no evidence of bowel obstruction, no free air, there was a large hiatal hernia. She was discharged to home on Cipro and metronidazole. PERTINENT LABORATORY DATA AND X-RAYS: CBC on day of admission showed normal white count. White count remained normal throughout admission. Hemoglobin and hematocrit were 8.6 and 26.9, with an MCV of 87, which declined to 7.9 and 24.7 yesterday. Following transfusion, hemoglobin and hematocrit on day of discharge were 9.5 and 29.8. Platelets remained normal and slightly elevated in the range to about 500,000. Chemistry showed sodium that ranged between 130 to 134. Potassium on admission was 3.7 and on day of discharge, 3.8. Renal function was intact with a GFR of more than 60. LFTs were unremarkable. Albumin is decreased at 2.4. BNP was elevated at 547. Urinalysis showed a cloudy yellow urine with a specific gravity of 1.015, with 10 to 20 wbc's and a moderate amount of bacteria. A urine culture was obtained by straight catheterization. Results were available today and show more than 100,000 CFUs/mL of a Gram-positive cocci. It was felt to be a probable coagulase-negative Staph. Final ID and sensitivity to follow. See addendum. Addendum: Final culture showed multiple organisms, consistent with contamination. A single-view chest x-ray was taken at the time of admission and showed a normal cardiac silhouette unchanged prior to February 2017 exam, but there was a slight increase in venous congestion suggesting mild cardiovascular decompensation. It should be noted that on previous [place] admission, she did have issues with fluid overload. HOSPITAL COURSE: Mrs. Waite was admitted. She was continued on her usual medications. At the time of discharge from [place], she was on Cipro and metronidazole for 7-day course because of the findings on the above CT scan. She was continued on these antibiotics and continued on her usual medications. Her anemia was noted with a hemoglobin dropping to 7.9 from 8.6. She had been transfused in [place] in October. She received 3 units of blood prior to transfer to [place] and was further transfused in [place]. Because of the generalized weakness and the decision for [place] [facility] admission for strengthening, the was discussed with her and she agreed to receive a unit of packed red blood cells. She received this overnight and tolerated it well. She is A positive, antibody negative. This morning hemoglobin and hematocrit improved to 9.5 and 29.8. Review of her clinical data shows that she is taking in adequate fluids, she is voiding, her colostomy is functioning, she is tolerating her meals. She appears to be incontinent of urine. Review of vital signs show that her blood pressures have been controlled since admission with improvement in her systolics when she was back on her medical regimen. Heart rate shows a controlled ventricular rate. EKG today shows a normal sinus rhythm. She has remained afebrile although yesterday at the time of blood transfusion, she was noted to have a low-grade fever, which was treated with Tylenol and Motrin prior to the transfusion. I had received a call from the swing bed coordinator and the Adult Motor Scooter Mechanic, who had concerns about Mrs. Waite and her need for [place] [facility] placement. They asked me to evaluate her. I did come to the hospital and met with and Mrs. Waite, and we talked at length. Later, the director of nurses from [facility] joined the discussion. Mrs. Waite has agreed to be admitted to the [facility] here in [place]. We had a john discussion about her cancer, and she agreed that she did not wish to pursue any kind of treatment. Since the cancer was diagnosed in October, she still is yet to complete the metastatic workup. She has canceled or missed all of her appointments for scheduled PET scan and for followup with Oncology. She was scheduled to see Dr. Schwartz in [place] by Telemedicine next week. I contacted Dr. Schwartz's office, and we have canceled that appointment. If Mrs. Waite changes her mind at any point, we certainly can reschedule it, but it appears she does not wish to pursue any aggressive treatment for the cancer. She also has an upcoming appointment with Surgery for recheck of her wound. She has 2 small areas of dehiscence on the anterior abdominal wound. These are being packed with quarter-inch Nu Gauze, and we will continue these dressings at the [place] [facility]. I will get in touch with VIN Brandon of General Surgery, and discuss this with her. We will continue wound care here. At this point, I do not think she needs to return to [place]. There is no evidence for wound infection and the wound is healing. We also discussed her code status yesterday, and she does not wish any type of cardiopulmonary resuscitation. She wishes no aggressive intervention. She understands that her prognosis is poor. She also complained during the interview yesterday of difficulty hearing. Her ears were examined and she has impacted wax bilaterally and she was started on Debrox ear drops and we will irrigate her ears next week at the [place] [facility]. PHYSICAL EXAMINATION: General: When seen, she was lying comfortably in bed. Vital Signs: Today show blood pressure of 139/64, pulse 60 and regular, respiratory rate 16, oxygen saturation 98% on room air, and she was afebrile. Weight was 165 pounds 9 ounces on the bed scale. HEENT: Unremarkable. ENT was clear. Chest: Clear. Heart: Regular. Abdomen: Soft and benign with a healed midline scar except for 2 small areas of dehiscence, which were packed with Nu Gauze. The surrounding skin was clean, dry, with no sign of redness or induration. Neurological: She was intact. DISCHARGE MEDICATIONS: 1. Aspirin EC 81 mg daily. 2. Benazepril 40 mg daily. 3. Furosemide 40 mg twice a day. 4. Niferex 150 mg daily. 5. Claritin 10 mg p.o. daily p.r.n. 6. Metoprolol succinate 200 mg daily. 7. Multivitamin with minerals 1 tablet daily. 8. Potassium chloride 20 mEq daily. 9. Zantac 150 mg daily. 10.Sertraline 50 mg daily. 11.Detrol LA 4 mg daily. 12.Amlodipine 10 mg daily. 13.Benadryl 25 mg at bedtime p.r.n. sleep. 14.She will continue on Flagyl 500 mg t.i.d. for another 4 days and ciprofloxacin 500 mg twice a day also for another 4 days. ALLERGIES: To penicillins. CONDITION AT TIME OF DISCHARGE: Hemodynamically, neurologically stable. PROGNOSIS: Poor. [facility] /[id number] [facility]
--- NOTE | 2017-04-09 10:41 | EKG ---
02/18/2017- REGGIE HOYOS - EKG done on an 81-year-old female, showing sinus rhythm with heart rate of 70 beats per minute, prolonged MD interval. PVCs noted. Left axis deviation noted. No acute ST wave changes. [facility] /[id number]
== END 2017-02-20 11:20 ==
LOC: DL.ED 09:45 → DL.MS 12:20 → UNDOADMOB 12:20 → DL.MS 13:51
PROVIDERS: ADMIT Internal Medicine; ATTEND Internal Medicine
DX: R53.81 Other malaise (principal); R53.1 Weakness; D64.9 Anemia, unspecified; E87.1 Hypo-osmolality and hyponatremia; E87.6 Hypokalemia; E88.09 Other disorders of plasma-protein metabolism, not elsewhere classified; I10 Essential (primary) hypertension; K21.9 Gastro-esophageal reflux disease without esophagitis; N39.0 Urinary tract infection, site not specified; I50.9 Heart failure, unspecified; Z79.82 Long term (current) use of aspirin; Z79.899 Other long term (current) drug therapy; Z88.0 Allergy status to penicillin; Z90.710 Acquired absence of both cervix and uterus; Z93.3 Colostomy status; Z96.659 Presence of unspecified artificial knee joint; Z85.038 Personal history of other malignant neoplasm of large intestine
CPT/HCPCS: 36415; 36430; 71010; 80048; 80053; 81001; 82550; 83880; 85025; 86850; 86900; 86901; 86920; 86922; 87086; 93005; 93010; 94010; 96372; 96374; 97161; 97165; 99284; 99285; A9270; G0378; J1650; J1940; J7050; P9016